=== PATIENT | female | born 1985 | race Caucasian/White ===

== ENCOUNTER → 2016-06-07 | Outpatient (CLI) | payer OTHER ==
--- NOTE | 2016-06-07 15:24 | US ---
Ultrasound Pelvis Complete (Transabdominal and Endovaginal) Including Duplex/Doppler Imaging History: N83.291, follow up adnexal cyst. Comparison: Ultrasound of March 2016. Technique: Transabdominal and endovaginal ultrasound images were obtained. Endovaginal images obtain ed for better evaluation of the uterine myometrium and adnexa. Duplex/Doppler imaging of adnexa. Findings: Uterus measures 9 x 7 x 5 cm. Endometrial thickness is 11 mm. No definite uterine leiomyom elder. Right ovary measures 7 x 3.6 x 4.3 cm. Left ovary measures 2.6 x 2.5 x 1.7 cm. In the right ovary, th ere are 2 complex cysts with homogeneous internal echoes demonstrating similar characteristics, with the largest lesion measuring 4.1 x 3.4 x 3.3 cm, previously measuring 4.1 x 3.8 x 3.4 cm. The smaller lesion measures 3.7 x 3.6 x 2.7 cm, previously measuring 2.9 x 2.7 x 2.6 cm, now slightly larger. No significant free fluid in the pelvis. Color Doppler flow to both ovaries without torsion. Impression: 1. Two right ovarian complex cystic lesions probably representing endometriomas, with one of the comp tamiko cysts appearing larger, now measuring 3.7 x 3.6 x 2.7 cm, and the other stable measuring 4.1 x 3. 4 x 3.3 cm. 2. No significant free fluid. 3. No uterine leiomyomata. 4. Normal left ovary. 5. No ovarian torsion.
== END ==
LOC: BRMIMAGING 14:34
PROVIDERS: ATTEND Obstetrics & Gynecology
DX: N83.291 Other ovarian cyst, right side (principal)
CPT/HCPCS: 76856-PO

== ENCOUNTER → 2016-11-02 | Outpatient (CLI) | payer OTHER | LOC: BRMIMAGING 14:30 | PROVIDERS: ATTEND Obstetrics & Gynecology | DX: N80.9 Endometriosis, unspecified (principal) | CPT/HCPCS: 76856-PO ==